=== PATIENT | female | born 1995 | race Caucasian/White ===

== ENCOUNTER 2021-07-10 20:35 | Inpatient (IN) ==
[2021-07-10] MEDS ORDERED: BUTORPHANOL 2 MG/ML VIAL IV PRN (20:48)
[2021-07-10] MEDS ORDERED: MEPERIDINE 50 MG/1 ML VIAL IV PRN (20:48)
[2021-07-10 21:37] LABS: Basophils % 0.2 % (0.0-0.8); Eosinophils # 0.1 10*3/uL (0.0-0.87); Hemoglobin 8.1 GM/DL (12.0-16.0); Immature Granulocytes % 0.9 %; Immature Granulocytes Absolute 0.11 #; Lymphocytes % 16.1 % (21.3-54.2); Mean Corpuscular HGB Conc 31.2 GM/DL (32-36); Mean Corpuscular Volume 78.8 FL (87-102); Mean Platelet Volume 10.8 FL (9.6-12.0); Monocytes % 8.7 % (1.7-12.7); NRBC # 0.07 10*3/uL; Neutrophils % 73.1 % (38.7-73.9); Platelet Count 315 T/CUMM (130-400); Red Cell Distribution Width 14.1 % (9.3-17.3); White Blood Count 12.4 T/CUMM (4-12)
[2021-07-10 21:59] LABS: Alanine Aminotransferase 21 U/L (13-56); Albumin 2.4 G/DL (3.4-5.0); Alkaline Phosphatase 137 U/L (45-117); Aspartate Amino Transferase 15 U/L (0-37); Bilirubin,Total < 0.39 MG/DL (0.20-1.00); Blood Urea Nitrogen 13 MG/DL (7-18); Calcium 8.7 MG/DL (8.5-10.1); Carbon Dioxide 19 MMOL/L (21-32); Estimated Glom Filtration Rate 119 ML/MIN; Glucose 100 MG/DL (74-106); Osmolality,Calculated 276.5 MOS/KG (273-304); Potassium 3.4 MMOL/L (3.5-5.1); Sodium 139 MMOL/L (136-145); Total Protein 6.3 G/DL (6.4-8.2)
[2021-07-11] MEDS: ONDANSETRON 4 MG/2 ML VIAL IV PRN ×2 (06:15→20:28)
[2021-07-11] MEDS: LACTATED RINGERS 1,000 ML IV PRN ×5 (07:34→21:35)
[2021-07-11] MEDS ORDERED: FAMOTIDINE 20 MG/2 ML VIAL IV ONE (07:42)
[2021-07-11] MEDS ORDERED: ePHEDrine 50 MG/ML VIAL IV PRN (07:42)
[2021-07-11] MEDS ORDERED: hydrOXYzine HCL 25 MG/1 ML VIAL IM PRN (07:42)
[2021-07-11] MEDS ORDERED: NALOXONE 0.4 MG/ML VIAL IV PRN (07:42)
[2021-07-11] MEDS ORDERED: diphenhydrAMINE 50 MG/1 ML VIAL IV PRN (07:42)
[2021-07-11] MEDS ORDERED: PROMETHAZINE 25 MG/1 ML VIAL IM PRN (07:42)
[2021-07-11] MEDS ORDERED: CITRIC ACID/SODIUM CITRATE 30 ML UDCUP PO ONE (07:42)
[2021-07-11] MEDS ORDERED: TERBUTALINE 1 MG/1 ML VIAL SUBCUT ONE (07:49)
[2021-07-11] MEDS: fentaNYL 2 MCG/ROPIV 0.2% EPID 100 ML EPIDURAL SCH ×3 (09:05→18:39)
[2021-07-11 12:29] LABS: Bilirubin,Urine Negative (Negative); Blood, Urine Negative (Negative); Glucose,Urine (UA) Negative (Negative); Ketones,Urine Negative (Negative); Mucus,Urine Few /LPF (Occasional); Nitrite,Urine Negative (Negative); Protein,Urine 100 MG/DL; RBC,Urine 1 /HPF (0-4); Squamous Epithelial Cell,Urine Occasional /HPF (0-10); Urine Appearance CLEAR (Clear); Urine Color Yellow (Yellow); Urine Specific Gravity 1.015 (1.001-1.035); Urine Urobilinogen < 2.0 EU/DL (0.2-1.0)
[2021-07-11] MEDS ORDERED: OXYTOCIN/LR 20 UNIT/1,000 ML BAG IV SCH (17:00)
[2021-07-11] MEDS ORDERED: ceFAZolin 2,000 MG/50 ML DUPLEX IV ONE (21:50)
[2021-07-11] MEDS ORDERED: miSOPROStoL 200 MCG TABLET ONE (22:01)
[2021-07-11] MEDS ORDERED: TRANEXAMIC ACID 1,000 MG/10 ML VIAL ONE (22:01)
[2021-07-11] MEDS ORDERED: OXYTOCIN/LR 20 UNIT/1,000 ML BAG IV ONE (22:02)
[2021-07-11] MEDS ORDERED: METHYLERGONOVINE 0.2 MG/1 ML AMP ONE (22:02)
[2021-07-11] MEDS ORDERED: CARBOPROST TROMETHAMINE 250 MCG/ML AMP IM ONE (22:02)
[2021-07-11] MEDS ORDERED: ONDANSETRON 4 MG/2 ML VIAL ONE (22:18)
[2021-07-11] MEDS ORDERED: LIDOCAINE MPF 2% /EPI 20 ML VIAL ONE (22:18)
[2021-07-11] MEDS ORDERED: ePHEDrine 50 MG/ML VIAL ONE (22:41)
[2021-07-11] MEDS ORDERED: ACETAMINOPHEN INJ 1,000 MG/100 ML VIAL IV ONE (22:45)
[2021-07-11] MEDS ORDERED: KETOROLAC 30 MG/1 ML VIAL ONE (22:45)
[2021-07-11] MEDS ORDERED: DEXAMETHASONE 4 MG/1 ML VIAL ONE (22:45)
[2021-07-11] MEDS ORDERED: METHYLERGONOVINE 0.2 MG/1 ML AMP IM ONE (22:50)
[2021-07-11] MEDS ORDERED: miSOPROStoL 200 MCG TABLET VAG ONE (22:52)
[2021-07-11] MEDS ORDERED: propofoL 200 MG/20 ML VIAL IV ONE (23:10)
[2021-07-11] MEDS ORDERED: BUPIVACAINE SPINAL 0.75% 2 ML AMP SPINAL ONE (23:11)
[2021-07-11 23:30] LABS: Cord Arterial Blood HCO3 15.5 MMOL/L
[2021-07-11 23:31] LABS: Cord Venous Blood HCO3 18.6 MMOL/L; Cord Venous Blood PCO2 43.8 MMHG; Cord Venous Blood PO2 < 19.0 MMHG
[2021-07-12] MEDS ORDERED: OXYTOCIN/LR 20 UNIT/1,000 ML BAG IV ONE ×2 (00:55→02:43)
[2021-07-12 01:24] LABS: Hemoglobin 8.9 GM/DL (12.0-16.0)
[2021-07-12] MEDS ORDERED: WITCH HAZEL PADS 100/JAR TOP PRN (02:43)
[2021-07-12] MEDS ORDERED: LANOLIN 50% CREAM 0.3 OZ TUBE TOP PRN (02:43)
[2021-07-12] MEDS ORDERED: BENZOCAINE 20%/MENTHOL 0.5% SPRAY 56 GM CAN TOP PRN (02:43)
[2021-07-12] MEDS ORDERED: RHO(D) IMMUNE GLOBULIN 300 MCG SYRINGE IM ONE (02:43)
[2021-07-12] MEDS ORDERED: BISACODYL 10 MG SUPP RECTAL PRN (02:43)
[2021-07-12] MEDS ORDERED: DIPH/TET/ACEL PERT BOOSTER VACCINE 0.5 ML VIAL IM ONE (02:43)
[2021-07-12] MEDS ORDERED: MEASLES/MUMPS/RUBELLA VACCINE 0.5 ML VIAL SUBCUT ONE (02:43)
[2021-07-12] MEDS ORDERED: ACETAMINOPHEN 325 MG TABLET PO PRN (02:43)
[2021-07-12] MEDS ORDERED: HYDROCORTISONE 2.5% RECTAL CREAM 30 GM TUBE TOP PRN (02:43)
[2021-07-12] MEDS ORDERED: ONDANSETRON 4 MG/2 ML VIAL IV PRN (02:43)
[2021-07-12] MEDS: oxyCODONE/ACETAMINOPHEN 5-325 MG TABLET PO PRN ×4 (02:59→19:43)
[2021-07-12] MEDS: KETOROLAC 30 MG/1 ML VIAL IV SCH ×3 (04:51→17:26)
[2021-07-12 05:46] LABS: Basophils % 0.1 % (0.0-0.8); Hematocrit 26.9 VOL% (35.7-47.0); Hemoglobin 8.4 GM/DL (12.0-16.0); Immature Granulocytes Absolute 0.26 #; Lymphocytes # 0.7 10*3/uL (1.4-4.0); Lymphocytes % 2.5 % (21.3-54.2); Mean Corpuscular HGB Conc 31.2 GM/DL (32-36); Mean Corpuscular Volume 79.8 FL (87-102); Mean Platelet Volume 11.2 FL (9.6-12.0); Monocytes % 4.3 % (1.7-12.7); NRBC # 0.03 10*3/uL; Neutrophils % 92.1 % (38.7-73.9); Platelet Count 245 T/CUMM (130-400); Red Blood Count 3.37 MC/CUMM (3.8-5.5); Red Cell Distribution Width 14.3 % (9.3-17.3)
[2021-07-12 06:05] LABS: Band Neutrophils 1 % (0-10); Lymphocytes 5 % (20-55); Platelet Estimate Adequate; Segmented Neutrophils 89 % (50-85); Total Cells Counted 100
[2021-07-12 06:06] LABS: Hypochromasia 1+; Microcytosis 1+
[2021-07-12] MEDS: ACETAMINOPHEN 500 MG TABLET PO SCH ×3 (08:17→17:40)
[2021-07-12] MEDS: DOCUSATE SODIUM 100 MG CAPSULE PO SCH ×3 (09:15→20:39)
[2021-07-12] MEDS: FERROUS SULFATE 325 MG TABLET PO SCH ×3 (09:16→20:40)
[2021-07-12] MEDS: POTASSIUM CHLORIDE 20 MEQ TABLET PO PRN ×3 (10:10→13:36)
[2021-07-12] MEDS: IBUPROFEN 800 MG TABLET PO PRN (23:11)
[2021-07-13] MEDS: oxyCODONE/ACETAMINOPHEN 5-325 MG TABLET PO PRN ×2 (04:18→10:44)
[2021-07-13] MEDS: IBUPROFEN 800 MG TABLET PO PRN ×2 (04:19→10:44)
[2021-07-13] MEDS: FERROUS SULFATE 325 MG TABLET PO SCH (09:32)
[2021-07-13] MEDS: DOCUSATE SODIUM 100 MG CAPSULE PO SCH (09:32)
[2021-07-13 09:54] VITALS: BP 125/74
== END 2021-07-13 12:30 | disposition home or self-care (01) | DRG 788 ==
LOC: N.LDOUT 20:35 → N.LD 20:38 → N.OB 07-12 02:25
PROVIDERS: ADMIT Specialist; ATTEND Specialist
PROC: LDCSECT (ICD-10-PCS; 2021-07-11 22:00)